=== PATIENT | female | born 1975 | race Caucasian/White ===

== ENCOUNTER 2017-09-01 16:16 | Emergency (ER) | payer OTHER ==
[2017-09-01] MEDS ORDERED: Cyclobenzaprine 10 MG Tab PO ONE (16:17)
[2017-09-01] MEDS ORDERED: Acetaminophen/oxyCODONE 325-5 MG Tab PO ONE ×2 (16:17→19:21)
[2017-09-01] MEDS ORDERED: Acetaminophen/oxyCODONE 325-5 MG Tab ONE (19:56)
[2017-09-01] MEDS ORDERED: Cyclobenzaprine 10 MG Tab ONE (19:56)
--- NOTE | 2017-09-01 20:03 | EDM.PDOC ---
ED HPI GENERAL MEDICAL PROBLEM - General Chief Complaint: Abdominal Pain Stated Complaint: PULLED MUSCLE Time Seen by Provider: 09/01/17 19:05 Source of Information: Reports: Patient History Limitations: Reports: No Limitations - History of Present Illness INITIAL COMMENTS - FREE TEXT/NARRATIVE: ED with c/o left abdominal muscle pain since 1230 today after doing backward extension move. No rilef with Advil Was seen by PT and told Oblique muscle rubture. Unable to find position of comfort. No reeief with abdominal binder. or ice. Pain radiating down to left hip Left Lower Abdominal Pain Score (Numeric/FACES): 10 - Related Data Allergies Allergy/AdvReac Type Severity Reaction Status Date / Time No Known Allergies Allergy Verified 09/01/17 16:26 Home Meds: Home Meds Albuterol [Proventil HFA] 2 puff INH Q4H PRN 09/01/17 [History] Mometasone/Formoterol [Dulera 200 Mcg/5 Mcg Inhaler] 8.8 gm IH DAILY 09/01/17 [ History] traMADol [Ultram] 50 mg PO DAILY 09/01/17 [History] Past Medical History - Past Health History Medical/Surgical History: Denies Medical/Surgical History Respiratory History: Reports: Asthma - Past Surgical History GI Surgical History: Reports: Hernia, Abdominal Social & Family History - Family History Family Medical History: Noncontributory - Tobacco Use Smoking Status *Q: Current Every Day Smoker Years of Tobacco use: 10 Packs/Tins Daily: 1 - Caffeine Use Caffeine Use: Reports: Coffee, Soda - Recreational Drug Use Recreational Drug Use: No ED ROS GENERAL - Review of Systems Review Of Systems: ROS reveals no pertinent complaints other than HPI. ED EXAM, GI/ABD - Physical Exam Exam: See Below Exam Limited By: No Limitations General Appearance: Alert, Moderate Distress, Thin (well toned muscles) Eyes: Bilateral: EOMI Ears: Normal External Exam Throat/Mouth: Normal Inspection Head: Atraumatic, Normocephalic Neck: Normal Inspection, Full Range of Motion Respiratory/Chest: No Respiratory Distress, Lungs Clear, Normal Breath Sounds Cardiovascular: Normal Peripheral Pulses, Regular Rate, Rhythm GI/Abdominal Exam: Normal Bowel Sounds, Soft, Guarding, Tender (left lower with palpation, movment. Mild swelling at waist, no deformity). No: Rebound Back Exam: Normal Inspection, Full Range of Motion Extremities: Normal Inspection, Normal Range of Motion Neurological: Alert, Oriented, Normal Cognition. No: Normal Gait ( slight stoop ) Skin Exam: Warm, Dry, Intact, Normal Color Course - Vital Signs Last Recorded V/S: Last Vital Signs Temp 97.5 F 09/01/17 16:30 Pulse 67 09/01/17 16:30 Resp 14 09/01/17 16:30 BP 124/73 09/01/17 16:30 Pulse Ox 100 09/01/17 16:30 - Orders/Labs/Meds Orders: Active Orders 24 hr Category Date Time Status HCG QUALITATIVE,URINE [URCHEM] Stat Lab 09/01/17 19:18 Ordered UA W/MICROSCOPIC [URIN] Stat Lab 09/01/17 19:18 Ordered Labs: Laboratory Tests 09/01/17 09/01/17 Range/Units 19:18 19:18 Urine Color Dark yellow (YELLOW) Urine Appearance Slightly cloudy (CLEAR) Urine pH 5.5 (5.0-9.0) Ur Specific [place] >= 1.030 (1.005-1.030) Urine Protein Trace H (NEGATIVE) Urine Glucose (UA) Negative (NEGATIVE) Urine Ketones 80 H (NEGATIVE) Urine Occult Blood Negative (NEGATIVE) Urine Nitrite Negative (NEGATIVE) Urine Bilirubin Small H (NEGATIVE) Urine Urobilinogen 0.2 (0.2-1.0) mg/dL Ur Leukocyte Esterase Negative (NEGATIVE) Urine RBC 0-5 /HPF Urine WBC 0-5 (0-5/HPF) /HPF Ur Epithelial Cells Moderate H /HPF Urine Bacteria Rare (0-FEW/HPF) /HPF Urine Mucus Moderate H /LPF Urine HCG, Qual Negative Meds: Medications Discontinued Medications Generic Name Dose Route Start Last Admin Trade Name Freq PRN Reason Stop Dose Admin Cyclobenzaprine HCl Confirm 09/01/17 19:56 09/01/17 20:06 Flexeril Administered 09/01/17 19:57 Not Given Dose 20 mg .ROUTE .STK-MED ONE Orphenadrine Citrate 60 mg 09/01/17 19:19 09/01/17 19:28 Norflex IM 09/01/17 19:20 60 mg ONETIME ONE Administration Oxycodone/Acetaminophen 1 tab 09/01/17 19:21 09/01/17 19:27 Percocet 325-5 Mg PO 09/01/17 19:22 1 tab ONETIME ONE Administration Oxycodone/Acetaminophen Confirm 09/01/17 19:56 09/01/17 20:06 Percocet 325-5 Mg Administered 09/01/17 19:57 Not Given Dose 2 tab .ROUTE .STK-MED ONE - Re-Assessments/Exams Free Text/Narrative Re-Assessment/Exam: 09/02/17 03:13 Pain improved. Requesting discharge. Departure - Departure Time of Disposition: 20:00 Disposition: Home, Self-Care 01 Condition: Good Clinical Impression: Muscle pain - Discharge Information Instructions: Musculoskeletal Pain Forms: ED Department Discharge Additional Instructions: flexeril 10mg 1/2 to 1 every 8 hours as needed for muscle spasm percocet 5/325 one every 6 hours as needed for pain ice abdominal support clinic and pt if not improving light activity, avoid stretching or lifting
== END 2017-09-01 20:07 | disposition home or self-care (01) ==
LOC: DL.ED 16:16
DX: M79.1 Myalgia (principal); F17.210 Nicotine dependence, cigarettes, uncomplicated; Z79.899 Other long term (current) drug therapy
CPT/HCPCS: 81001; 81025; 96372; 99284; A9270; J2360

== ENCOUNTER 2019-12-02 21:31 | Emergency (ER) | payer OTHER ==
[2019-12-02] MEDS ORDERED: Clindamycin HCl 150 MG Cap PO ONE (21:46)
[2019-12-02] MEDS ORDERED: Diphtheria,Pertussis(Acell),Tetanus Vaccine 0.5 ML Syringe IM ONE (21:46)
--- NOTE | 2019-12-02 21:50 | EDM.PDOC ---
ED HPI GENERAL MEDICAL PROBLEM - General Chief Complaint: Bite:Animal, Insect Stated Complaint: CAT BITE Time Seen by Provider: 12/02/19 21:49 Source of Information: Reports: Patient History Limitations: Reports: No Limitations - History of Present Illness INITIAL COMMENTS - FREE TEXT/NARRATIVE: got bit tis am by her own cat. Right Lower Arm Pain Score (Numeric/FACES): 6 - Related Data Allergies Allergy/AdvReac Type Severity Reaction Status Date / Time No Known Allergies Allergy Verified 12/02/19 21:45 Home Meds: Home Meds Albuterol [Proventil HFA] 2 puff INH Q4H PRN 09/01/17 [History] Mometasone/Formoterol [Dulera 200 Mcg/5 Mcg Inhaler] 8.8 gm IH DAILY 09/01/17 [ History] traMADol [Ultram] 50 mg PO DAILY 09/01/17 [History] Past Medical History - Past Health History Medical/Surgical History: Denies Medical/Surgical History Respiratory History: Reports: Asthma - Past Surgical History HEENT Surgical History: Reports: Other (See Below) Other HEENT Surgeries/Procedures: jaw surgery GI Surgical History: Reports: Hernia, Abdominal Other Female Surgeries/Procedures: removal of lump from the lefft breast Social & Family History - Family History Family Medical History: Noncontributory - Tobacco Use Tobacco Use Status *Q: Never Tobacco User - Caffeine Use Caffeine Use: Reports: Energy Drinks - Alcohol Use Date of Last Drink: 12/02/19 - Recreational Drug Use Recreational Drug Use: No ED ROS GENERAL - Review of Systems Review Of Systems: Comprehensive ROS is negative, except as noted in HPI. ED EXAM, ANIMAL BITE - Physical Exam Exam: See Below Exam Limited By: No Limitations General Appearance: Alert, WD/WN, No Apparent Distress Ears: Hearing Grossly Normal Throat/Mouth: Normal Voice, No Airway Compromise Head: Atraumatic Neck: Non-Tender, Full Range of Motion Respiratory/Chest: No Respiratory Distress Cardiovascular: Regular Rate, Rhythm GI/Abdominal: Soft, Non-Tender (Female) Exam: Deferred Rectal (Female) Exam: Deferred Extremities: Other (right wrist-forearm spfl bit wounds x2 non suturable, normal ROM, NV wnl, lymphangitis at volar aspect with mild swelling) Neurological: Alert, Oriented, Normal Cognition, Normal Gait, No Motor/Sensory Deficits Psychiatric: Normal Affect, Normal Mood Skin Exam: Normal Color, Warm/Dry Lymphatic: No Adenopathy Course - Vital Signs Last Recorded V/S: Last Vital Signs Temp 36.3 C 12/02/19 21:37 Pulse 95 12/02/19 21:37 Resp 19 12/02/19 21:37 BP 145/98 H 12/02/19 21:37 Pulse Ox 98 12/02/19 21:37 - Orders/Labs/Meds Orders: Active Orders 24 hr Category Date Time Status Vaccines to be Administered [RC] PER UNIT ROUTINE Care 12/02/19 21:47 Active Meds: Medications Discontinued Medications Generic Name Dose Route Start Last Admin Trade Name Ed[place] PRN Reason Stop Dose Admin Clindamycin HCl 300 mg 12/02/19 21:46 Cleocin PO 12/02/19 21:47 ONETIME ONE Diphtheria/Tetanus/Acell Pertussis 0.5 ml 12/02/19 21:46 Boostrix IM 12/02/19 21:47 .ONCE ONE Departure - Departure Time of Disposition: 21:54 Disposition: Home, Self-Care 01 Condition: Good Clinical Impression: Infected cat bite of forearm Qualifiers: Encounter type: initial encounter Laterality: right Qualified Code(s): S51.851A - Open bite of right forearm, initial encounter; L08.9 - Local infection of the skin and subcutaneous tissue, unspecified; W55.01XA - Bitten by cat, initial encounter - Discharge Information Forms: ED Department Discharge Additional Instructions: 1) keep wound clean dry covered 2) recheck if looks worse rx given; clindamycin 300mg qid x 40 Sepsis Event Note (ED) - Evaluation Sepsis Screening Result: No Definite Risk - Focused Exam Vital Signs: Vital Signs Temp Pulse Resp BP Pulse Ox 12/02/19 21:37 36.3 C 95 19 145/98 H 98 - My Orders Last 24 Hours: My Active Orders 12/02/19 21:47 Vaccines to be Administered [RC] PER UNIT ROUTINE - Assessment/Plan Last 24 Hours: My Active Orders 12/02/19 21:47 Vaccines to be Administered [RC] PER UNIT ROUTINE
== END 2019-12-02 22:04 | disposition home or self-care (01) ==
LOC: DL.ED 21:31
DX: S51.851A Open bite of right forearm, initial encounter (principal); L08.9 Local infection of the skin and subcutaneous tissue, unspecified; J45.909 Unspecified asthma, uncomplicated; Z79.899 Other long term (current) drug therapy; Z23 Encounter for immunization; W55.01XA Bitten by cat, initial encounter
CPT/HCPCS: 90471; 90715; 99283; A9270

== ENCOUNTER 2020-10-03 17:51 | Emergency (ER) | payer OTHER ==
[2020-10-03] MEDS ORDERED: Lidocaine 1% 30 ML SDV ONE (19:07)
[2020-10-03] MEDS ORDERED: Lidocaine 1% 30 ML SDV INJECT ONE (19:09)
[2020-10-03] MEDS ORDERED: Cephalexin 500 MG Cap PO ONE (19:25)
--- NOTE | 2020-10-03 19:25 | EDM.PDOC ---
ED HPI GENERAL MEDICAL PROBLEM - General Chief Complaint: Laceration Stated Complaint: CUT BETWEEN THUMB AND FIRST FINGER Time Seen by Provider: 10/03/20 19:26 Source of Information: Reports: Patient History Limitations: Reports: No Limitations - History of Present Illness INITIAL COMMENTS - FREE TEXT/NARRATIVE: Patient's unfortunate 44-year-old female who presents emerged part today with complaint of laceration to right hand. The patient reports she was in her normal state of health until 20 minutes prior to arrival when she was breaking a stick and it poked her in the right hand she has a 3.5 cm linear laceration in the interdigital space between the first and second finger. This is a full dermis thickness no active bleeding no foreign body is noted. The patient does report that she pulled a foreign body out of her hand today just prior to arrival and she reports her last tetanus was 1 year ago Onset: Today Right Hand Pain Score (Numeric/FACES): 7 - Related Data Allergies Allergy/AdvReac Type Severity Reaction Status Date / Time No Known Allergies Allergy Verified 10/03/20 19:10 Home Meds: Home Meds Albuterol [Proventil HFA] 2 puff INH Q4H PRN 09/01/17 [History] Mometasone/Formoterol [Dulera 200 Mcg/5 Mcg Inhaler] 8.8 gm IH DAILY 09/01/17 [History] traMADol [Ultram] 50 mg PO BID 09/01/17 [History] cephALEXin [Keflex] 500 mg PO QID #28 cap 10/03/20 [Rx] Past Medical History - Past Health History Medical/Surgical History: Denies Medical/Surgical History Respiratory History: Reports: Asthma Neurological History: Reports: Neuropathy, Peripheral - Past Surgical History HEENT Surgical History: Reports: Other (See Below) Other HEENT Surgeries/Procedures: jaw surgery x2 GI Surgical History: Reports: Hernia, Abdominal Other Female Surgeries/Procedures: removal of lump from the lefft breast Social & Family History - Family History Family Medical History: No Pertinent Family History - Tobacco Use Tobacco Use Status *Q: Never Tobacco User Second Hand Smoke Exposure: No - Caffeine Use Caffeine Use: Reports: Coffee, Soda - Recreational Drug Use Recreational Drug Use: No ED ROS GENERAL - Review of Systems Review Of Systems: See Below Skin: Reports: Other (Laceration) ED EXAM, SKIN/RASH Exam: See Below Exam Limited By: No Limitations General Appearance: Alert, WD/WN, Mild Distress Respiratory/Chest: No Respiratory Distress, Lungs Clear, Normal Breath Sounds, No Accessory Muscle Use, Chest Non-Tender Cardiovascular: Normal Peripheral Pulses, Regular Rate, Rhythm, No Edema, No Gallop, No JVD, No Murmur, No Rub GI/Abdominal: Normal Bowel Sounds, Soft, Non-Tender, No Organomegaly, No Distention, No Abnormal Bruit, No Mass Extremities: Other (0.5 cm linear laceration in the interdigital space between the right first and second digits, this is a full dermis thickness minimal active bleeding no foreign body noted,) Neurological: Alert, Oriented, CN II-XII Intact Skin: Warm, Dry, Intact ED SKIN PROCEDURES - Additional/Other Procedure(s) Other (Free Text) Procedure(s): Laceration repair: 3.5 cm linear laceration to right hand, Betadine prep, local anesthesia lidocaine 1% for mL, wound was irrigated with NS and Betadine, no foreign bodies were appreciated, wound was closed with 4-0 Ethilon #8 running suture, patient tolerated procedure well, dressing by nursing Course - Vital Signs Last Recorded V/S: Last Vital Signs Temp 97.5 F 10/03/20 18:55 Pulse 78 10/03/20 18:55 Resp 18 10/03/20 18:55 BP 150/90 H 10/03/20 18:55 Pulse Ox 98 10/03/20 18:55 - Orders/Labs/Meds Orders: Active Orders 24 hr Category Date Time Status cephALEXin [Keflex] Med 10/03/20 19:25 Once 500 mg PO ONETIME ONE Medication Orders Cephalexin (Cephalexin 500 Mg Cap) 500 mg PO ONETIME ONE Stop: 10/03/20 19:26 Meds: Medications Generic Name Dose Route Start Last Admin Trade Name Freq PRN Reason Stop Dose Admin Cephalexin 500 mg 10/03/20 19:25 Cephalexin 500 Mg Cap PO 10/03/20 19:26 ONETIME ONE Discontinued Medications Generic Name Dose Route Start Last Admin Trade Name Freq PRN Reason Stop Dose Admin Lidocaine HCl Confirm 10/03/20 19:07 Lidocaine 1% 30 Ml Sdv Administered 10/03/20 19:08 Dose 30 ml .ROUTE .STK-MED ONE Lidocaine HCl 30 ml 10/03/20 19:09 10/03/20 19:24 Lidocaine 1% 30 Ml Sdv INJECT 10/03/20 19:10 30 ml ONETIME ONE Administration Departure - Departure Time of Disposition: 19:22 Disposition: Home, Self-Care 01 Condition: Good Clinical Impression: Laceration without foreign body of right hand, initial encounter - Discharge Information *PRESCRIPTION DRUG MONITORING PROGRAM REVIEWED*: No *COPY OF PRESCRIPTION DRUG MONITORING REPORT IN PATIENT PARVEEN: No Prescriptions: cephALEXin [Keflex] 500 mg PO QID #28 cap Forms: ED Department Discharge Additional Instructions: Home, rest, keep wound clean and dry, clean wound daily apply Neosporin and bandage, sutures out in 5 to 7 days Sepsis Event Note (ED) - Evaluation Sepsis Screening Result: No Definite Risk - Focused Exam Vital Signs: Vital Signs Temp Pulse Resp BP Pulse Ox 10/03/20 18:55 97.5 F 78 18 150/90 H 98 - My Orders Last 24 Hours: My Active Orders 10/03/20 19:25 cephALEXin [Keflex] 500 mg PO ONETIME ONE - Assessment/Plan Last 24 Hours: My Active Orders 10/03/20 19:25 cephALEXin [Keflex] 500 mg PO ONETIME ONE
== END 2020-10-03 19:34 | disposition home or self-care (01) ==
LOC: DL.ED 17:51
DX: S61.411A Laceration without foreign body of right hand, initial encounter (principal); W26.8XXA Contact with other sharp object(s), not elsewhere classified, initial encounter; Z79.899 Other long term (current) drug therapy
CPT/HCPCS: 12002; 99282-25; 99283; A9270-GY

== ENCOUNTER 2021-06-29 22:43 | Emergency (ER) | payer OTHER ==
[2021-06-29] MEDS ORDERED: Acetaminophen 325 MG Tab PO ONE (23:22)
== END 2021-06-29 23:59 | disposition home or self-care (01) ==
LOC: DL.ED 22:43
DX: S93.491A Sprain of other ligament of right ankle, initial encounter (principal); X50.1XXA Overexertion from prolonged static or awkward postures, initial encounter
CPT/HCPCS: 73600-RT; 99283; 99283-25; A9270-GY

== ENCOUNTER 2021-12-20 14:58 | Emergency (ER) | payer OTHER ==
[2021-12-20] MEDS ORDERED: Amoxicillin/Clavulanate K 875-125 MG Tab PO ONE (14:59)
[2021-12-20] MEDS ORDERED: Piperacillin/Tazobactam 3.375 GM in Sodium Chloride 0.9% 100 ML IV ONE (15:15)
[2021-12-20] MEDS ORDERED: Sodium Chloride 0.9% 10 ML Syringe FLUSH PRN (15:15)
[2021-12-20] MEDS ORDERED: Amoxicillin/Clavulanate K 875-125 MG Tab ONE (16:01)
== END 2021-12-20 16:00 | disposition home or self-care (01) ==
LOC: DL.ED 14:58
DX: S51.851A Open bite of right forearm, initial encounter (principal); J45.909 Unspecified asthma, uncomplicated; Z79.899 Other long term (current) drug therapy; Z86.16 Personal history of COVID-19; W55.01XA Bitten by cat, initial encounter
CPT/HCPCS: 36415; 83605; 85025; 86140; 96365; 99283; A9270; J2543; J3490